=== PATIENT | female | born 1985 | race Asian ===

== ENCOUNTER 2020-09-18 06:31 | Day surgery (SDC) | payer OTHER ==
[2020-09-18 07:15] LABS: #Basophils 0.1 thou/uL (0.0-0.2); #Monocytes 0.9 thou/uL (0.11-0.59); #Neutrophils 12.2 thou/uL (1.40-6.50); %Basophils 0.4 % (0.0-1.0); %Eosinophils 0.2 % (0.0-10.0); %Lymphocytes 23.4 % (21.0-51.0); %Monocytes 5.1 % (0.0-10.0); %Neutrophils 70.9 % (42.0-75.0); Hemoglobin 14.8 g/dL (12.0-16.0); Mean Corpuscular HGB CONC 33.7 g/dL (32.0-36.0); Mean Corpuscular Hemoglobin 31.4 pg (27.0-31.0); Mean Corpuscular Volume 93.2 fL (78.0-98.0); Mean Platelet Volume 6.9 fL (7.4-10.4); Platelet Count 379 thou/uL (130-400); RBC Distribution Width 11.9 % (11.5-14.5); Red Blood Cell (RBC) Count 4.72 mill/uL (4.20-5.40); White Blood Cell (WBC) Count 17.2 thou/uL (4.8-10.8)
[2020-09-18 07:37] LABS: Anion Gap 15 mmol/L (10-20); BUN (Urea Nitrogen) 12 mg/dL (7.0-18.7); Calc. Creatinine Clearance 141 mL/min (70-130); Calcium 9.4 mg/dL (7.8-10.44); Carbon Dioxide 26 mmol/L (22-29); Chloride 102 mmol/L (98-107); Glucose 109 mg/dL (70-105); Potassium 4.7 mmol/L (3.5-5.1); Sodium 138 mmol/L (136-145)
[2020-09-18] MEDS ORDERED: Fentanyl 100 MCG/2 ML VIAL ONE ×3 (07:38→10:14)
[2020-09-18] MEDS ORDERED: Midazolam HCl 2 mg/2 ml Vial ONE (07:58)
[2020-09-18] MEDS ORDERED: Lidocaine 1% PF 5 ML VIAL ONE (08:51)
[2020-09-18] MEDS ORDERED: Ondansetron PF 4 MG/2 ML Vial ONE (08:51)
[2020-09-18] MEDS ORDERED: Esmolol 100 MG/10 ML VIAL ONE (08:51)
[2020-09-18] MEDS ORDERED: PROPOFOL 200 MG/20 ML VIAL ONE (08:51)
[2020-09-18] MEDS ORDERED: Dexamethasone 20 MG/5 ML VIAL ONE (08:51)
[2020-09-18] MEDS ORDERED: Rocuronium Bromide 10 MG/ML (10ML VIAL) ONE (08:51)
[2020-09-18] MEDS ORDERED: SUGAMMADEX SODIUM 200 MG/2 ML VIAL ONE (09:32)
[2020-09-18] MEDS ORDERED: HYDROmorphone 0.5 MG/0.5 ML SYRINGE ONE ×2 (10:00→10:09)
[2020-09-18] MEDS ORDERED: Meperidine HCl/PF 25 MG/ML VIAL ONE (10:17)
[2020-09-18] MEDS ORDERED: Morphine 2 MG/ML VIAL ONE (11:26)
[2020-09-18] MEDS ORDERED: HYDROcodone/Acetaminophen 10/325 mg Tablet ONE (11:48)
[2020-09-18] MEDS ORDERED: tiZANidine HCl 4 MG TAB ONE (13:11)
== END 2020-09-18 13:30 | disposition home or self-care (01) ==
LOC: SDC 06:31
PROVIDERS: ATTEND Neurological Surgery
PROC: 0RG2070 Fusion of 2 or more Cervical Vertebral Joints with Autologous Tissue Substitute, Anterior Approach, Anterior Column, Open Approach (ICD-10-PCS; principal; 2020-09-18)
PROC: 0RT30ZZ Resection of Cervical Vertebral Disc, Open Approach (ICD-10-PCS; principal; 2020-09-18)
DX: M50.121 Cervical disc disorder at C4-C5 level with radiculopathy (principal); M47.22 Other spondylosis with radiculopathy, cervical region; M40.202 Unspecified kyphosis, cervical region; Z79.899 Other long term (current) drug therapy
CPT/HCPCS: 36415; 76000; 80048; 85025; 93005; 93010; C1713; C1776; J0690; J1100; J1170; J2175; J2250; J2270; J2405; J2704; J3010